=== PATIENT | female | born 1945 | race Caucasian/White ===

== ENCOUNTER → 2016-04-21 | Day surgery (SDC) | payer MEDICARE, BC ==
[~2016-04-21] MED LIST: ANASTROZOLE1 MG PO; BENAZEPRIL PO; CYSTOPROTEK PO; DICYCLOMINE HCL20 MG PO; ELMIRON100 MG PO; ENABLEX15 MG PO; HYDROCHLOROTH12.5 M1 PO; IRON; KEFLEX PO; LIPITOR PO; METOPROLOL TART25 MG PO; MULTI VITAMIN1 EACH PO; NEXIUM PO; OYSTER SHELL 51 EACH PO; PERCOCET5/325 PO; PROTONIX PO; SANCTURA; SERTRALINE HCL100 MG PO; SIMVASTATIN40 MG PO; ZOCOR PO; ZOLOFT PO; [UNRECOGNIZED DRUG - CODE] PO; [UNRECOGNIZED DRUG - OTHER] PO
--- NOTE | ~2016-04-21 | OR ---
Unit #: [id number] #: [id number] Patient: ROSY HAGEN [id number] [address] [address] [id number] MR#: [id number] NAME: ROSY HAGEN ROOM: Date of Procedure: 04/21/2016 Admission Date: 04/21/2016 Surgeon: Natalio Salas M.D. : 1945 Attending Physician: Natalio Salas M.D. Primary Care Physician: Teresita Mckinnon M.D. OPERATIVE REPORT PREOPERATIVE DIAGNOSES 1. Reflux symptoms resistant to medications. 2. Crampy abdominal pain. POSTOPERATIVE DIAGNOSES 1. Reflux symptoms resistant to medications. 2. Crampy abdominal pain. PROCEDURES PERFORMED 1. Esophagogastroduodenoscopy. 2. Biopsy of antrum for Helicobacter pylori testing. 3. Polypectomy x2 of antrum with electrocautery snare. 4. Colonoscopy to cecum. 5. Polypectomy of mid ascending colon with cold biopsy forceps. ANESTHESIA Monitored anesthesia care. FINDINGS The patient was found have a large hiatal hernia as well as a very large number of gastric polyps throughout the stomach. Two patient accounting representative polyps were excised with electrocautery snare, retrieved and sent to Pathology. The large number gastric polyps have been reported in the past. 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 Mild internal hemorrhoids were also found. SPECIMENS Sent to Pathology. COMPLICATIONS None apparent. CONDITION The patient tolerated the procedure well. INDICATIONS FOR PROCEDURE The patient is a 70-year-old white female, who presents at this time with reflux symptoms resistant to medications as well as with a complaint of mid abdominal pain. She presents at this time for evaluation by upper and lower endoscopy. Unit #: [id number] #: [id number] Patient: ROSY HAGEN DESCRIPTION OF PROCEDURE After obtaining informed consent, the patient was brought to the endoscopy suite and after adequate monitored anesthesia care, had the endoscope placed through the mouth into the upper esophagus under direct vision. It was advanced to the second portion of the duodenum without difficulty with the lumen always in view. The duodenum was within normal limits as was the duodenal bulb. The pylorus opened normally. There was some mild distal gastritis present and a biopsy was obtained for Helicobacter pylori testing. On retroflexion back to the GE junction, the patient was found to have a large hiatal hernia. There was also a very large number of gastric polyps present throughout the stomach except for the very distal antrum. This has been reported previously on previous endoscopies. Via using the electrocautery snare, two patient accounting representative polyps were excised with good hemostasis and sent to Pathology. On pulling back above the GE junction, there was no stenosis, stricture, or neoplasm seen. There was no significant esophagitis. The remaining portion of the esophagus was within normal limits. Laryngeal structures were grossly normal as viewed from above. At this point in time, the colonoscope was placed through the anus and slowly advanced to the level of the cecum without difficulty with lumen always in view. The cecum was normal as was the ileocecal valve. There were a few scattered diverticula present in the ascending colon. In the mid ascending colon, there was a 3 to 4 mm polyp that was excised completely with the cold biopsy forceps with good hemostasis and sent to Pathology. The hepatic flexure was normal. There was scattered butterfield-diverticular disease throughout the remaining portion of the colon most numerous in the sigmoid colon; however, other than this, there was no abnormality seen in the transverse colon, splenic flexure, descending colon, sigmoid colon, or rectum. On retroflexing in the rectum to the anorectal junction, the patient was found to have some mild internal hemorrhoids. The scope was removed without difficulty. The patient tolerated the procedure well and went from the endoscopy suite to the recovery area in stable condition. RECOMMENDATIONS Gastroesophageal reflux sheet given. Diverticular sheet given. Call Sunday for pathology. High-fiber diet, lots of liquids, tucks or wipes p.r.n. Dictated by... Craig Charlton/grabiel TD: 04/21/2016 13:37 JOB #: [id number] [facility] OPERATIVE REPORT X Natalio Salas MD X PROCEDURE OPERATIVE NOTE
== END | disposition home or self-care (01) ==
LOC: COPS 05:43
DX: D12.2 Benign neoplasm of ascending colon (principal); K31.7 Polyp of stomach and duodenum; K57.30 Diverticulosis of large intestine without perforation or abscess without bleeding; K64.8 Other hemorrhoids; K44.9 Diaphragmatic hernia without obstruction or gangrene; K21.9 Gastro-esophageal reflux disease without esophagitis; M19.90 Unspecified osteoarthritis, unspecified site; I10 Essential (primary) hypertension; E78.5 Hyperlipidemia, unspecified; F41.1 Generalized anxiety disorder; E53.8 Deficiency of other specified B group vitamins; M81.0 Age-related osteoporosis without current pathological fracture; Z90.710 Acquired absence of both cervix and uterus; Z87.01 Personal history of pneumonia (recurrent); Z87.442 Personal history of urinary calculi; Z90.49 Acquired absence of other specified parts of digestive tract; Z85.3 Personal history of malignant neoplasm of breast; Z87.440 Personal history of urinary (tract) infections; Z79.899 Other long term (current) drug therapy; Z86.2 Personal history of diseases of the blood and blood-forming organs and certain disorders involving the immune mechanism; Z98.890 Other specified postprocedural states; Z82.61 Family history of arthritis; Z82.49 Family history of ischemic heart disease and other diseases of the circulatory system; Z83.49 Family history of other endocrine, nutritional and metabolic diseases; Z80.8 Family history of malignant neoplasm of other organs or systems
CPT/HCPCS: 87077; 88305; 88312